=== PATIENT | female | born 1995 | race African-American/Black ===

== ENCOUNTER 2017-03-15 17:02 | Emergency (ER) | payer BC ==
[~2017-03-15] VITALS: Ht 165.1 cm; Wt 81.6 kg
[2017-03-15 17:42] VITALS: BP_SYST 131
[2017-03-15 18:02] LABS: BILIRUBIN,URINE NEGATIVE (NEGATIVE); BLOOD, URINE NEGATIVE (NEGATIVE); CLARITY/URINE CLEAR (CLEAR); COLOR,URINE YELLOW (YELLOW); GLUCOSE,URINE NEGATIVE (NEGATIVE); KETONES,URINE NEGATIVE (NEGATIVE); LEUKOCYTE ESTERASE ,URINE TRACE (NEGATIVE); NITRITE, URINE NEGATIVE (NEGATIVE); PROTEIN URINE NEGATIVE (NEGATIVE); UROBILINOGEN,URINE 0.2 (0.2-1.0)
[2017-03-15 18:21] LABS: BACTERIA,URINE FEW /HPF (None Seen); RBC,URINE 0-3 /HPF (0-3); WBC,URINE 0-3 /HPF (0-3)
[2017-03-15 18:22] LABS: MUCUS,URINE 1+ /LPF (None Seen)
[2017-03-15] MEDS ORDERED: FLUCONAZOLE 100 MG TABLET (DIFLUCAN) PO ONE (18:30)
[2017-03-15 18:50] VITALS: BP_SYST 131
== END 2017-03-15 18:50 | disposition home or self-care (01) ==
LOC: SED 17:02
DX: B37.3 Candidiasis of vulva and vagina (principal); N39.0 Urinary tract infection, site not specified; F12.20 Cannabis dependence, uncomplicated
CPT/HCPCS: 81000-TC; 81025; 87210-TC; 99284